=== PATIENT | male | born 1945 | race African-American/Black ===

== ENCOUNTER 2019-01-16 10:49 | Emergency (ER) | payer MEDICARE ==
[~2019-01-16] VITALS: Ht 180.3 cm; Wt 84.0 kg
[~2019-01-16 10:49] MED LIST: AZITHROMYCIN250 MG PO; FIORICET PO; NAPROSYN500 MG PO; NO; ZOFRAN ODT4 MG PO
[2019-01-16 11:27] LABS: HEMATOCRIT 45.4 % (39.0-50.0); HEMOGLOBIN 14.6 g/dl (14.0-18.0); IMMATURE GRANULOCYTES 0.3 % (0.0-5.0); MEAN CELL VOLUME 92.7 fL CALC (80.0-100.0); MEAN CORPUSCULAR HGB 29.8 pG CALC (26.0-32.0); MEAN CORPUSCULAR HGB CONC 32.2 g/L CALC (32.0-36.0); NEUT# 3.24 thou/uL (1.82-7.42); RED BLOOD COUNT 4.9 mill/uL (4.70-6.10); RED CELL DISTRI WIDTH 15.7 % (11.5-15.5)
[2019-01-16 11:50] LABS: ALBUMIN 4.6 g/dL (3.2-5.0); ALKALINE PHOSPHATASE 90 u/l (38-126); ANION GAP 16 (6-22 (CALC)); BILIRUBIN, TOTAL 0.7 mg/dL (0.0-1.4); BUN 14 mg/dL (8-23); BUN/CREATININE RATIO 12 (12-20 (CALC)); CARBON DIOXIDE 23 mmol/l (22-30); CHLORIDE 105 mmol/l (95-108); CREATININE 1.2 mg/dL (0.7-1.3); GFR 60 ML/MIN (>=60 (CALC)); GFR FOR AFR.AMER. > 60 ML/MIN (>=60 (CALC)); POTASSIUM 4.4 mmol/l (3.5-5.1); SGOT/AST 15 u/l (19-48); SODIUM 140 mmol/l (137-146); TOTAL PROTEIN 7.7 g/dL (6.3-8.2)
[2019-01-16] MEDS ORDERED: AMOXICILLIN/PO500 MG PO (12:00)
[2019-01-16] MEDS ORDERED: CEPHALEXIN500 M1 PO (12:02)
[2019-01-16 12:06] VITALS: BP 127/68
[2019-01-17] MEDS ORDERED: DOXYCYCL HYC100 MG PO (08:25)
== END 2019-01-16 12:08 | disposition home or self-care (01) ==
LOC: ED 10:49
PROVIDERS: Emergency Medicine
DX: L03.116 Cellulitis of left lower limb (principal); F17.210 Nicotine dependence, cigarettes, uncomplicated

== ENCOUNTER 2019-01-17 08:10 | Emergency (ER) | payer MEDICARE ==
[~2019-01-17] VITALS: Ht 180.3 cm; Wt 90.0 kg
[~2019-01-17 08:10] MED LIST changes: +AMOXICILLIN/PO500 MG PO; +CEPHALEXIN500 M1 PO
[2019-01-17] MEDS ORDERED: DOXYCYCL HYC100 MG PO (08:25)
[2019-01-17 08:31] VITALS: BP 126/73
== END 2019-01-17 08:35 | disposition home or self-care (01) ==
LOC: ED 08:10
DX: L03.116 Cellulitis of left lower limb (principal)

== ENCOUNTER 2020-09-19 13:11 | Emergency (ER) | payer MEDICARE ==
[~2020-09-19] VITALS: Ht 180.3 cm; Wt 95.5 kg
[~2020-09-19 13:11] MED LIST changes: +DOXYCYCL HYC100 MG PO
[2020-09-19] MEDS ORDERED: CORTISPORIN OTI10 M2 AU (15:28)
[2020-09-19] MEDS ORDERED: DEBROX6.5 % AU (15:28)
[2020-09-19 15:32] VITALS: BP 164/85
== END 2020-09-19 15:40 | disposition home or self-care (01) ==
LOC: ED 13:11
PROC: 3E1B78Z Irrigation of Ear using Irrigating Substance, Via Natural or Artificial Opening (ICD-10-PCS; principal; 2020-09-19)
PROC: 3E1B78Z Irrigation of Ear using Irrigating Substance, Via Natural or Artificial Opening (ICD-10-PCS; 2020-09-19)
DX: H61.23 Impacted cerumen, bilateral (principal); F17.210 Nicotine dependence, cigarettes, uncomplicated

== ENCOUNTER 2021-01-27 08:45 | Emergency (ER) | payer MEDICARE ==
[~2021-01-27] VITALS: Ht 180.3 cm; Wt 86.3 kg
[~2021-01-27 08:45] MED LIST changes: +CORTISPORIN OTI10 M2 AU; +DEBROX6.5 % AU
[2021-01-27 09:37] LABS: HEMATOCRIT 43.2 % (39.0-50.0); HEMOGLOBIN 13.8 g/dl (14.0-18.0); IMMATURE GRANULOCYTES 0.5 % (0.0-5.0); MEAN CELL VOLUME 93.5 fL CALC (80.0-100.0); MEAN CORPUSCULAR HGB 29.9 pG CALC (26.0-32.0); MEAN CORPUSCULAR HGB CONC 31.9 g/dL CAL (32.0-36.0); NEUT# 5.5 thou/uL (1.82-7.42); RED BLOOD COUNT 4.62 mill/uL (4.70-6.10); RED CELL DISTRI WIDTH 15.5 % (11.5-15.5)
[2021-01-27 09:53] LABS: ALBUMIN 4.6 g/dL (3.2-5.0); ALKALINE PHOSPHATASE 77 u/l (38-126); ANION GAP 16 (6-22 (CALC)); BILIRUBIN, TOTAL 0.9 mg/dL (0.0-1.4); BUN 12 mg/dL (8-23); BUN/CREATININE RATIO 11 (12-20 (CALC)); CARBON DIOXIDE 22 mmol/l (22-30); CHLORIDE 103 mmol/l (95-108); CREATININE 1.1 mg/dL (0.7-1.3); ETHYL ALCOHOL 0 mg/dl (0-30); GFR > 60 ML/MIN (>=60 (CALC)); GFR FOR AFR.AMER. > 60 ML/MIN (>=60 (CALC)); SODIUM 136 mmol/l (137-146); TOTAL PROTEIN 8.7 g/dL (6.3-8.2)
[2021-01-27 10:01] LABS: SGOT/AST 28 u/l (19-48)
[2021-01-27 10:03] LABS: MYOGLOBIN 48 ng/mL (0 - 121)
[2021-01-27 11:40] LABS: URINE BILIRUBIN - DIPSTICK NEGATIVE (NEGATIVE); URINE BLOOD DIPSTICK NEGATIVE (NEGATIVE); URINE COLOR YELLOW; URINE GLUCOSE - DIPSTICK NEGATIVE (NEGATIVE); URINE KETONE TRACE mg/dL (NEGATIVE); URINE LEUK ESTERASE NEGATIVE (NEGATIVE); URINE NITRITE - DIPSTICK NEGATIVE (Negative); URINE PROTEIN - DIPSTICK NEGATIVE (NEG-TRACE); URINE UROBILINOGEN - DIPSTICK 0.2 E.U./dL (0.2)
[2021-01-27] MEDS ORDERED: NAPROXEN500 MG PO (12:37)
[2021-01-27 12:50] VITALS: BP 151/72
== END 2021-01-27 12:56 | disposition home or self-care (01) ==
LOC: ED 08:45
PROVIDERS: Emergency Medicine
DX: I10 Essential (primary) hypertension (principal); F14.10 Cocaine abuse, uncomplicated; F17.210 Nicotine dependence, cigarettes, uncomplicated
CPT/HCPCS: Q9967

== ENCOUNTER 2021-06-16 12:22 | Emergency (ER) | payer MEDICARE ==
[~2021-06-16] VITALS: Ht 180.3 cm; Wt 81.8 kg
[~2021-06-16 12:22] MED LIST changes: +NAPROXEN500 MG PO
[2021-06-16 14:13] LABS: HEMATOCRIT 43.9 % (39.0-50.0); HEMOGLOBIN 14.2 g/dl (14.0-18.0); IMMATURE GRANULOCYTES 0.3 % (0.0-5.0); MEAN CELL VOLUME 96.9 fL CALC (80.0-100.0); MEAN CORPUSCULAR HGB 31.3 pG CALC (26.0-32.0); MEAN CORPUSCULAR HGB CONC 32.3 g/dL CAL (32.0-36.0); NEUT# 7.98 thou/uL (1.82-7.42); RED BLOOD COUNT 4.53 mill/uL (4.70-6.10); RED CELL DISTRI WIDTH 15.4 % (11.5-15.5)
[2021-06-16 14:31] LABS: ACT PARTIAL THROMBO TIME 22.7 SECONDS (20.0-32.5); PROTHROMBIN TIME 10.1 SECONDS (9.0-12.5)
[2021-06-16 14:33] LABS: ALBUMIN 4.9 g/dL (3.2-5.0); ALKALINE PHOSPHATASE 92 u/l (38-126); ANION GAP 22 (6-22 (CALC)); BILIRUBIN, TOTAL 0.6 mg/dL (0.0-1.4); BUN 20 mg/dL (8-23); BUN/CREATININE RATIO 14 (12-20 (CALC)); CARBON DIOXIDE 18 mmol/l (22-30); CHLORIDE 106 mmol/l (95-108); CREATININE 1.4 mg/dL (0.7-1.3); ETHYL ALCOHOL 47 mg/dl (0-30); GFR 50 ML/MIN (>=60 (CALC)); GFR FOR AFR.AMER. 60 ML/MIN (>=60 (CALC)); LIPASE 76 u/l (23-300); MAGNESIUM 2.3 mg/dL (1.6-2.3); POTASSIUM 4.4 mmol/l (3.5-5.1); SGOT/AST 21 u/l (19-48); SODIUM 142 mmol/l (137-146); TOTAL PROTEIN 8.7 g/dL (6.3-8.2)
[2021-06-16 15:19] LABS: URINE BILIRUBIN - DIPSTICK NEGATIVE (NEGATIVE); URINE BLOOD DIPSTICK NEGATIVE (NEGATIVE); URINE COLOR YELLOW; URINE GLUCOSE - DIPSTICK NEGATIVE (NEGATIVE); URINE KETONE 15 mg/dL (NEGATIVE); URINE LEUK ESTERASE NEGATIVE (NEGATIVE); URINE PH 5.5 (4.5-8.0); URINE PROTEIN - DIPSTICK TRACE mg/dL (NEG-TRACE); URINE SPECIFIC GRAVITY >=1.030; URINE UROBILINOGEN - DIPSTICK 0.2 E.U./dL (0.2)
[2021-06-16 15:25] LABS: URINE NITRITE - DIPSTICK NEGATIVE (Negative)
[2021-06-16 17:35] VITALS: BP 182/74
== END 2021-06-16 17:30 | disposition home or self-care (01) ==
LOC: ED 12:22
DX: F14.10 Cocaine abuse, uncomplicated (principal); F12.10 Cannabis abuse, uncomplicated; F17.210 Nicotine dependence, cigarettes, uncomplicated; Z20.822 Contact with and (suspected) exposure to COVID-19